=== PATIENT | female | born 1955 | race Caucasian/White ===

== ENCOUNTER 2022-01-09 12:27 | Outpatient (CLI) | payer MEDICARE, OTHER, SELFPAY ==
--- NOTE | 2022-01-10 13:10 | WPDSIXMINUTE ---
Six Minute Walk Procedure Procedure Performed Pulmonary Stress Test (6 min walk) Six Minute Walk Six Minute Walk: This 6 minute walk test was carried out with the patient breathing supplemental oxygen 2 liters/minute. The pre walk oxyhemoglobin saturation was 95%. The patient walked over 236 m with no stops during testing. During the walk, the oxyhemoglobin saturation remained 93% or higher. The perceived dyspnea on the Angela scale was 1 at baseline and increased to 3 at the end of the testing. Impression: No evidence of oxyhemoglobin desaturation on this testing.
== END 2022-01-09 12:28 | disposition home or self-care (01) ==
PROVIDERS: Visit Provider Internal Medicine Pulmonary Disease
DX: J44.9 Chronic obstructive pulmonary disease, unspecified (principal)
CPT/HCPCS: 94618

== ENCOUNTER 2022-05-02 13:30 | Outpatient (RCR) | payer MEDICARE, OTHER, SELFPAY ==
[2022-01-10 15:40] VITALS: BP 142/80; PULSE 83; O2SAT 97
== END 2022-05-02 23:59 | disposition home or self-care (01) ==
LOC: ANHCPREHAB 13:30
PROVIDERS: Visit Provider Internal Medicine Pulmonary Disease
DX: J44.9 Chronic obstructive pulmonary disease, unspecified (principal)
CPT/HCPCS: 94625

== ENCOUNTER 2022-05-23 13:30 | Outpatient (RCR) | payer MEDICARE, OTHER, SELFPAY ==
[2022-05-11 00:02] VITALS: BP 142/80; PULSE 83; O2SAT 97
== END 2022-06-27 10:02 | disposition home or self-care (01) ==
LOC: ANHCPREHAB 13:30
PROVIDERS: Visit Provider Internal Medicine Pulmonary Disease
DX: J44.9 Chronic obstructive pulmonary disease, unspecified (principal)
CPT/HCPCS: 94625

== ENCOUNTER 2022-05-31 12:49 | Emergency (ER) | payer MEDICARE, OTHER, SELFPAY ==
--- NOTE | ~2022-05-31 | XR_ITS ---
EXAMINATION: XR chest 2V 05/31/2022 13:46 INDICATION: Cough and congestion PROCEDURE: 2 view chest COMPARISON: No prior studies for comparison. FINDINGS: The lungs are hyperinflated which is consistent with, but not diagnostic of chronic obstruc tive pulmonary disease. There is apical pleural thickening/scarring. The cardiomediastinal silhouette is within normal limits. There are linear infiltrates of the lower lungs which may represent atelect asis or scarring. Pneumonia is less favored. IMPRESSION: 1: Linear bibasilar infiltrates, most likely atelectasis/scarring. Pneumonia less favored. Reviewed, dictated and finalized at location A. IMPRESSION: 1: Linear bibasilar infiltrates, most likely atelectasis/scarring. Pneumonia l ess favored.
[2022-05-31 13:07] VITALS: BP 137/57; PULSE 87; RESP 18; TEMP 37.3; O2SAT 96
[2022-05-31 13:11] VITALS: BP 137/57; PULSE 87; RESP 18; TEMP 37.3; O2SAT 96
--- NOTE | 2022-05-31 13:28 | ED.URI ---
HPI - URI/Sore Throat General Chief Complaint: Upper Respiratory Infection Stated Complaint: headache, fever, coughing, diarrhea Time Seen by Provider: 05/31/22 13:15 Source: patient Mode of arrival: ambulatory Limitations: no limitations History of Present Illness HPI Narrative: Ms. Rizzo is a 66-year-old female patient presenting to the clinic today with complaints of headache, fever, coughing, and diarrhea times 2-3 days. She reports that she has had positive exposure to a family member who tested positive for influenza A. She is currently on 1 L of O2 as she suffered from RSV and this cause scarring in her lungs. MD elicited complaint: fever, cough, nasal congestion and other ( headache and diarrhea) Related Data Home Medications Medication Instructions Recorded Confirmed albuterol sulfate 90 mcg/actuation 2 inh inhalation DAILY PRN 01/14/22 05/31/22 aerosol inhaler Shortness Of Breath aspirin 81 mg tablet 81 mg PO DAILY 01/14/22 05/31/22 budesonide 160 mcg-glycopyr 9 2 inh inhalation QAM AND QPM 01/14/22 05/31/22 mcg-formot 4.8 mcg/actuation HFA inhaler (Breztri Aerosphere) ferrous sulfate 325 mg (65 mg 325 mg PO BID 01/14/22 05/31/22 iron) tablet (iron) fluticasone propionate 50 2 spray intranasal DAILY 01/14/22 05/31/22 mcg/actuation nasal spray,suspension guaifenesin 600 mg tablet, 600 mg PO Q12H 01/14/22 05/31/22 extended release 12 hr (Mucinex) loratadine 10 mg tablet 10 mg PO DAILY 01/14/22 05/31/22 metoprolol succinate 25 mg 12.5 mg PO DAILY 01/14/22 05/31/22 tablet,extended release 24 hr mirtazapine 7.5 mg tablet 7.5 mg PO HS 01/14/22 05/31/22 oqgnakzc-gwj-yuywr ac 400 1 tablet PO DAILY 01/14/22 05/31/22 mcg-calcium carb 500 mg-vit K1 20 mcg tablet (Women's 50 Plus Multivitamin) rosuvastatin 5 mg tablet 5 mg PO DAILY 04/08/22 05/31/22 Allergies Allergy/AdvReac Type Severity Reaction Status Date / Time No Known Allergies Allergy Unverified 05/31/22 13:08 Review of Systems Review of Systems: Pertinent positives per HPI. Patient denies any fever, chills, rash, headache, visual changes, dizziness, cough, shortness of breath, chest pain, palpitations, nausea, vomiting, diarrhea, constipation, abdominal pain, or any urinary issues. [facility] Family History Family History Mother Lung cancer Father Emphysema lung Sibling Heart disease Social History Social History Smoking packs per day: 1 Smoking cigarettes per day: 20.0 Years smoked: 10 Smoking pack-years: 10.00 Smoking status: Former smoker Tobacco type: cigarettes Second hand tobacco smoke exposure: No Comments At the time of my signature, I reviewed and agree with the nursing past medical, surgical, social, and family history. There is no relevant family history pertinent to the patient complaint. Exam Narrative: General: Well-developed, well nourished, in no apparent distress Head: Normocephalic, atraumatic Eyes: Pupils equally round and reactive to light bilaterally, EOM intact, sclera and conjunctive clear, no discharge, lids normal Ears: TMs intact and clear, ear canals clear, no drainage, grossly hearing normal. Nose: Nares patent, no discharge, no inflammation, no sinus tenderness. Mouth: Oral pharynx without lesions or masses, good dentition, MMM. Neck: Supple, trachea midline, no enlargement of anterior or posterior cervical nodes, no thyroid masses or goiter palpable. Cardio: Regular rate and rhythm, s1 and s2 normal, no murmur appreciated. Resp: Lung sounds diminished, no rhonchi, rales, wheezing or rubs Course Course Emergency Course: Portions of this record may have been created with voice recognition software. Level of Care: Express Care Visit Vital Signs Vital signs: Vital Signs Temperature 37.3 C 05/31/22 13:07 Pulse Rate 87 05/31/22 13:07
== END 2022-05-31 14:18 | disposition home or self-care (01) ==
PROVIDERS: Emergency Provider Nurse Practitioner Family
DX: J10.1 Influenza due to other identified influenza virus with other respiratory manifestations (principal); Z87.891 Personal history of nicotine dependence; Z79.82 Long term (current) use of aspirin
CPT/HCPCS: 71046; 87804; 99213; G0463

== ENCOUNTER 2025-07-26 13:56 | Emergency (ER) | payer MEDICARE, OTHER, SELFPAY ==
--- NOTE | ~2025-07-26 | XR_ITS ---
XR chest 2V 07/26/2025 14:56 Indication: Cough for 2 days. COPD. Procedure: 2 view chest Comparison: 05/31/2022 Findings: Chronic scarring of the lung apices and lung bases. The lungs are hyperinflated which is consistent with, but not diagnostic of chronic obstructive pulmonary disease. No focal air space disease, pulmonary edema, pleural effusion or suspected pneumothorax. Impression: 1: No acute cardiopulmonary disease. Reviewed, dictated and finalized at location [facility]. [facility] [facility] Impression: 1: No acute cardiopulmonary disease.
--- NOTE | 2025-07-26 14:17 | ED.URI ---
HPI - URI/Sore Throat General Chief Complaint: Upper Respiratory Infection Stated Complaint: Cough,Winded Time Seen by Provider: 07/26/25 14:30 Source: patient, RN notes reviewed and old records reviewed Mode of arrival: ambulatory Limitations: no limitations History of Present Illness HPI Narrative: 69-year-old female presents to the [facility] with a runny nose, cough, feeling more winded than normal. Patient with a history of COPD and uses oxygen normally 1-2 L. Denies any chest pain, fevers. Has had exposure to COVID-19. Symptoms started 2 days ago No treatment prior to arrival Onset (ago): day(s) (2) Treatments prior to arrival: none Related Data Home Medications ?Medication ?Instructions ?Recorded ?Confirmed ?Last Taken ?Type albuterol sulfate 90 mcg/actuation 2 inh inhalation DAILY PRN 01/14/22 05/31/22 Unknown History aerosol inhaler Shortness Of Breath aspirin 81 mg tablet 81 mg PO DAILY 01/14/22 05/31/22 Unknown History budesonide 160 mcg-glycopyr 9 2 inh inhalation QAM AND QPM 01/14/22 05/31/22 Unknown History mcg-formot 4.8 mcg/actuation HFA inhaler (Breztri Aerosphere) ferrous sulfate 325 mg (65 mg 325 mg PO BID 01/14/22 05/31/22 Unknown History iron) tablet (iron) fluticasone propionate 50 2 spray intranasal DAILY 01/14/22 05/31/22 Unknown History mcg/actuation nasal spray,suspension loratadine 10 mg tablet 10 mg PO DAILY 01/14/22 05/31/22 Unknown History metoprolol succinate 25 mg 12.5 mg PO DAILY 01/14/22 05/31/22 Unknown History tablet,extended release 24 hr fffwdsww-kfw-qaont ac 400 1 tablet PO DAILY 01/14/22 05/31/22 Unknown History mcg-calcium carb 500 mg-vit K1 20 mcg tablet (Women's 50 Plus Multivitamin) albuterol 90 mcg-budesonide 80 inh inhalation 07/26/25 Unknown History mcg/actuation HFA aerosol inhaler (Airsupra) azithromycin 250 mg tablet mg 07/26/25 Unknown History metoprolol succinate 50 mg mg PO 07/26/25 Unknown History tablet,extended release 24 hr rosuvastatin 10 mg tablet mg 07/26/25 Unknown History Allergies Allergy/AdvReac Type Severity Reaction Status Date / Time No Known Allergies Allergy Verified 07/26/25 14:45 Review of Systems Review of Systems: All systems reviewed & are unremarkable except as noted in HPI and below Constitutional: Constitutional: Reports no additional constitutional complaints ENT: Reports system reviewed and no additional complaints, except as documented Cardiovascular: Cardiovascular: Reports no additional cardiovascular complaints, Denies chest pain and Denies dyspnea Respiratory: Respiratory: Reports as per HPI, Denies chest congestion, Reports cough and Reports dyspnea Musculoskeletal: Musculoskeletal: Reports no additional musculoskeletal complaints Integumentary/Breasts: Skin/Breast: Reports system reviewed and no additional complaints, except as docu [facility] Past Medical History Medical History (Updated 07/26/25 @ 18:01 by Rosalinda Johnson APRN) COPD (chronic obstructive pulmonary disease) Family History Family History Mother Lung cancer Father Emphysema lung Sibling Heart disease Social History Social History Smoking packs per day: 1 Smoking cigarettes per day: 20.0 Years smoked: 10 Smoking pack-years: 10.00 Smoking status: Former smoker Tobacco type: cigarettes Second hand tobacco smoke exposure: No Comments At the time of my signature, I reviewed and agree with the nursing past medical, surgical, social, and family history. There is no relevant family history pertinent to the patient complaint. Exam Const: General: cooperative, no acute distress, well developed, alert, ill appearing chronically, uncomfortable and well nourished Nutritional Appearance: well nourished Orientation/consciousness: patient oriented x3 Limitations: no limitations HENMT: Head: normal to inspection Ears: hearing grossly normal bilaterally, external ears normal, TM's normal bilaterally, EAC's normal, mastoids normal and no periauricular adenopathy Mouth: Yes Normal oral and palatal mucosa present, Yes lip normal, Yes tongue normal and Yes moist mucous membranes Throat: posterior oropharynx normal, uvula midline and no uvular edema Eyes: General: appearance normal, both eyes and all related structures Alignment and Position: alignment normal Neck: Neck: normal visual inspection, full ROM, no lymphadenopathy and no meningeal signs Chest: Chest palpation & inspection: normal inspection of the chest Resp: Effort & Inspection: normal respiratory effort and able to speak in complete sentences Auscultation: clear to auscultation bilaterally, no crackles, no rales, no rhonchi, no wheezes and diminished lung sounds bilateral throughout Cardio: Rate: regular rate Skin: General skin exam: normal color and no rashes or lesions noted Neuro: General: patient oriented x3, gait normal, moves all extremities and no meningeal signs Cognition (Neuro): normal cognition Speech: normal speech Gait exam (Neuro): Normal gait present Extrem: General: normal to inspection, full ROM, capillary refill normal and normal gait Psych: Appearance: grossly normal and well kempt Mental Status: mental status grossly normal Speech and movement: Normal speech and movement present and Clear speech present Affect: normal affect Attitude: cooperative Course Course Level of Care: Express Care Visit Vital Signs Vital signs: Vital Signs Temperature 97.8 F 07/26/25 14:29 Pulse Rate 103 H 07/26/25 14:29 Respiratory Rate 20 07/26/25 14:29 Pulse Oximetry 96 07/26/25 14:29 Oxygen Delivery Nasal Cannula 07/26/25 14:29 Oxygen Flow Rate 1.5 07/26/25 14:29 Temperature 97.8 F 07/26/25 14:29 Pulse Rate 103 H 07/26/25 14:29 Respiratory Rate 20 07/26/25 14:29 Blood Pressure 158/78 H 07/26/25 15:05 Pulse Oximetry 96 07/26/25 14:29 Oxygen Delivery Nasal Cannula 07/26/25 14:29 Oxygen Flow Rate 2 07/26/25 14:37 reviewed MDM MDM Narrative Medical decision making narrative: Patient sitting in a wheelchair. Patient is on oxygen. Patient presents 2 day history of runny nose and cough. Chest x-ray is negative for. Patient with history of COPD and asthma, currently on 3 times a week azithromycin as well as inhalers. Patient is flu and COVID are negative even though she has had exposure x2 2 COVID-19. Discussed this in detail, explained to patient that she could still test positive for COVID-19 if she retest tomorrow or the next day. Discussed that due to her symptoms and past medical history offered to transfer to an ER for further evaluation. Discussed that the Urgent Care is limited on resources on which services we provide. Patient, daughter will try home treatment, wear a mask, use inhalers as prescribed and if symptoms get worse will proceed to the nearest emergency room. Discharge instructions reviewed with patient, as well as provided in writing per nursing staff. The instructions also include specific and strict return/GO TO THE ER as well as f/u information. All questions have been answered, and the patient deny any further questions with discharge and discharge plan. Some parts of this dictation were generated by voice recognition software and may contain typographical and/or grammatical inaccuracies. Differential Diagnosis Differential Diagnosis: Differential diagnostic considerations for upper respiratory infection include upper respiratory infection, croup, otitis media, sinusitis, viral infection, bronchitis, influenza, pharyngitis, strep, uvulitis.? Lab Data Labs: Lab Results 07/26/25 Range/Units 14:47 POC Influenza A Ag Negative (Negative) POC Influenza B Ag Negative (Negative) POC SARS CoV-2 Ag Negative (Negative) POC Grp A Strep Screen Positive (Negative) Reviewed, strep was negative Imaging Data Radiologist's impression: ITS Impressions Chest X-Ray 07/26/25 15:07 Impression: 1: No acute cardiopulmonary disease. XR chest 2V 07/26/2025 14:56 Indication: Cough for 2 days. COPD. Procedure: 2 view chest Comparison: 05/31/2022 Findings: Chronic scarring of the lung apices and lung bases. The lungs are hyperinflated which is consistent with, but not diagnostic of chronic obstructive pulmonary disease. No focal air space disease, pulmonary edema, pleural effusion or suspected pneumothorax. Impression: 1: No acute cardiopulmonary disease. Discharge Plan Discharge Clinical Impression: Viral infection Patient Disposition: Home Condition: Stable Instructions: Antibiotic Form, Viral Syndrome (ED) Additional Instructions: Today your strep was negative, flu was negative, COVID was negative. Your chest x-ray did not show signs of a pneumonia. Use your inhalers Follow-up with primary care provider For worsening symptoms please go directly to the emergency room Patient Language: Telugu Prescriptions: No Action azithromycin 250 mg tablet metoprolol succinate 50 mg tablet extended release 24 hr PO rosuvastatin 10 mg tablet Airsupra 90-80 mcg/actuation HFA aerosol inhaler INHALATION ferrous sulfate [iron] 325 mg (65 mg iron) Tablet 325 mg PO BID aspirin 81 mg Tablet 81 mg PO DAILY metoprolol succinate 25 mg Tablet Extended Release 24 Hr 12.5 mg PO DAILY albuterol sulfate 90 mcg/actuation Hfa Aerosol Inhaler 2 inh inhalation DAILY PRN (Reason: Shortness Of Breath) fluticasone propionate 50 mcg/actuation [place],Suspension 2 spray INTRANASAL DAILY Rx Instructions: administer into each nostril loratadine 10 mg Tablet 10 mg PO DAILY Women's 50 Plus Multivitamin 400 mcg-500 mg calcium-20 mcg Tablet 1 tablet PO DAILY Breztri Aerosphere 160-9-4.8 mcg/actuation Hfa Aerosol Inhaler 2 inh INHALATION QAM AND QPM Follow-up/Referrals: Damien,Xavi Null MD [Non-Staff, Unknown] - 1 Week Time of Disposition: 15:25
[2025-07-26 14:29] VITALS: PULSE 103; RESP 20; TEMP 36.6; O2SAT 96
[2025-07-26 14:49] LABS: EDCOVIDSCREEN Negative (Negative); EDINFLUASCREEN Negative (Negative); EDINFLUBSCREEN Negative (Negative); EDSTREPNEGPOS1 Positive (Negative)
[2025-07-26 15:05] VITALS: BP 158/78
== END 2025-07-26 15:35 | disposition home or self-care (01) ==
PROVIDERS: Emergency Provider Nurse Practitioner; PCP Physician Assistant
DX: B34.9 Viral infection, unspecified (principal); Z20.822 Contact with and (suspected) exposure to COVID-19; J44.9 Chronic obstructive pulmonary disease, unspecified; Z79.82 Long term (current) use of aspirin; Z87.891 Personal history of nicotine dependence
CPT/HCPCS: 71046; 87081; 87426; 87804; 87880; 99213; G0463